=== PATIENT | male | born 1985 | race Caucasian/White ===

== ENCOUNTER 2018-09-22 10:46 | Emergency (ER) | payer MEDICAID, OTHER ==
[2018-09-22] MEDS: IBUPROFEN 800 MG TAB PO (11:08)
[2018-09-22] MEDS: DIPHTH/TET/ACEL PERTUSS (ADULT) 0.5 ML VIAL IM* (11:08)
[2018-09-22] MEDS: BACITRACIN 0.5%/ZINC 28.35 GM OINT TOP (11:08)
== END 2018-09-22 11:19 | disposition home or self-care (01) ==
LOC: FTE 10:46
DX: S01.81XA Laceration without foreign body of other part of head, initial encounter (principal); F17.210 Nicotine dependence, cigarettes, uncomplicated; W22.8XXA Striking against or struck by other objects, initial encounter; Y92.9 Unspecified place or not applicable; Z23 Encounter for immunization
CPT/HCPCS: 90471; 90715; 99283-25